=== PATIENT | female | born 1975 | race Caucasian/White ===

== ENCOUNTER 2016-11-09 18:14 | Emergency (ER) | payer MEDICAID ==
[~2016-11-09] VITALS: Ht 154.9 cm; Wt 60.0 kg
[~2016-11-09 18:14] MED LIST: CEPH500C3 PO
[2016-11-09 18:17] VITALS: BP 139/88; PULSE 97; RESP 16; TEMP 98.1; O2SAT 97
--- NOTE | 2016-11-09 19:14 | PD ---
HPI Chief Complaint: Musculoskeletal Complaint Time Seen by Provider: 19:04 Travel History International Travel<30 days: No Contact w/Intl Traveler<30days: No Traveled to known affect area: No History of Present Illness HPI This is a 41-year-old female smoker who reports a history of "borderline diabetes" who presents for evaluation of right leg pain. Symptoms started spontaneously 2 hours prior to examination well walking around her house. She describes it as a sharp pain and points to the location of her distal right quadriceps and right calf as the location of primary pain. Pain is worse when walking but also present when she is lying down. She denies any injuries. She denies any back pain, abdominal pain. She has never had this type of pain before. No history of DVT, PE, PVD. Denies recent travel, recent surgery. She does note that she has not had a menstrual period in several years. She tried using Advil prior to arrival but symptoms persist. She has no other complaints. PFSH Past Medical History Asthma: Yes Cardiovascular Problems: Yes Diminished Hearing: No Hypertension: Yes Respiratory: Yes ?: Not LMP: UNKNOWN : 5 Para: 4 Past Surgical History Section: Yes Cholecystectomy: Yes Hysterectomy: No Social History Alcohol Use: No Tobacco Use: Yes (11/05 PPD) Substance Use: No Allergies-Medications (Allergen,Severity, Reaction): Coded Allergies: Aspirin (Verified Allergy, Severe, SWELLS UP, 11/09/16) doesnt know Reported Meds & Prescriptions Reported Meds & Active Scripts Active Baclofen 10 Mg Tab 10 Mg PO Q8HR PRN 10 Days Ibuprofen 800 Mg Tab 800 Mg PO Q6HR PRN Review of Systems Except as stated in HPI: all other systems reviewed are Neg Physical Exam Narrative GENERAL: This is a well-developed well-nourished female who is in no acute distress. Resting comfortably in the hospital bed. Vital signs reviewed. SKIN: Warm and dry. No areas of erythema, ecchymosis. CARDIOVASCULAR: Regular rate and rhythm. No murmur appreciated. RESPIRATORY: No accessory muscle use. Clear to auscultation. Breath sounds equal bilaterally. GASTROINTESTINAL: Abdomen soft, non-tender, nondistended. Hepatic and splenic margins not palpable. MUSCULOSKELETAL: No obvious deformities. There is no lower extremity edema. The patient maintains tenderness to palpation to the right calf and right quadriceps musculature. There is no bruising, soft tissue swelling. There is no joint effusion. The patient maintains full range of motion of the lower extremities however she maintains that there is pain with range of motion activities utilizing the right leg. 2+ dorsalis pedis and posterior tibial pulses. Achilles tendon is intact. NEUROLOGICAL: Awake and alert. No obvious cranial nerve deficits. Motor grossly within normal limits. Normal speech. Data Data Last Documented VS Vital Signs Date Time Temp Pulse Resp B/P Pulse Ox O2 Delivery O2 Flow Rate FiO2 11/09/16 18:17 98.1 97 16 139/88 97 Orders Us Leg Venous Doppler (11/09/16 19:11) Ed Urine Pregnancytest Poc (11/09/16 19:11) [facility] Medical Decision Making Medical Screen Exam Complete: Yes Emergency Medical Condition: Yes Medical Record Reviewed: Yes Interpretation(s) Right leg ultrasound negative Differential Diagnosis Muscle cramp, muscle spasm, muscle strain, DVT, peripheral vascular disease, intermittent claudication, radiculopathy, rhabdomyolysis, compartment syndrome, myositis Narrative Course This is a 41-year-old female who developed pain in her right quadriceps and calf muscles 2 hours prior to examination well walking around her house. There was no trauma. Physical examination is reassuring with no evidence of peripheral vascular disease, bony involvement, joint involvement, no lower extremity edema. Given the spontaneous nature of her symptoms, Doppler ultrasound has been ordered to rule out DVT. I do suspect that this is most likely cramping or spasming of her muscles. The plan will be to treat the patient with NSAIDs and have her follow-up with her primary care physician. Diagnosis Primary Impression: Right leg pain Additional Instructions: Medication as needed. Take ibuprofen with meals. Do not drive or drink alcohol when taking baclofen. Follow up with primary care physician next week. Return for any emergent medical conditions. Med/Other Pt SpecificInfo: Prescription(s) given Scripts Baclofen 10 Mg Tab10 Mg PO Q8HR PRN (MUSCLE SPASM) 10 Days Ref 0 Prov:Raffi Suresh MD 11/09/16 Ibuprofen 800 Mg Qxs422 Mg PO Q6HR PRN (PAIN) #40 TAB Ref 0 Prov:Raffi Suresh MD 11/09/16 Disposition: 01 DISCHARGE HOME Condition: Stable Wayne Cotto Nov 09, 2016 19:14
[2016-11-09] MEDS ORDERED: IBUP800T23 PO (19:47)
[2016-11-09] MEDS ORDERED: BACL10TA PO (19:47)
--- NOTE | 2016-11-09 20:07 | RADRPT ---
EXAM DATE/TIME: 11/09/2016 19:16 [facility] COMPARISON: No previous studies available for comparison. INDICATIONS : Right leg pain. MEDICAL HISTORY : Hypertension. . Asthma. SURGICAL HISTORY : Cholecystectomy. section. Right ankle surgery. ENCOUNTER: Initial ACUITY: 1 day PAIN SCORE: 7/10 LOCATION: Right leg. TECHNIQUE: Venous ultrasound of the leg was performed from the inguinal ligament to the proximal calf. Real-brian e, color Doppler and spectral tracing, compression and augmentation techniques were used. FINDINGS: There is normal compressibility of the deep venous system from the inguinal region to the proximal ca lf. No echogenic clot is seen in the lumen of the common femoral, femoral, popliteal, and posterior tibial veins. There is a normal response of the venous system to proximal and distal augmentation an d respiration. CONCLUSION: Normal examination. Julio Fraser MD on November 09, 2016 at 20:03 Board Certified Radiologist. This report was verified electronically.
== END 2016-11-09 20:21 | disposition home or self-care (01) ==
LOC: NEPB 18:14
DX: M79.604 Pain in right leg (principal); I10 Essential (primary) hypertension; F17.210 Nicotine dependence, cigarettes, uncomplicated
CPT/HCPCS: 84703; 93971

== ENCOUNTER 2017-05-07 12:41 | Emergency (ER) | payer MEDICAID ==
[~2017-05-07] VITALS: Ht 167.6 cm; Wt 60.0 kg
[~2017-05-07 12:41] MED LIST changes: +BACL10TA PO; -CEPH500C3 PO; +IBUP800T23 PO
[2017-05-07 12:53] VITALS: BP 133/89; PULSE 80; RESP 18; TEMP 99; O2SAT 99
[2017-05-07] MEDS ORDERED: SODIUM CHLOR 0.9% 1000 ML INJ 1,000 ML IV ONE (12:53)
[2017-05-07] MEDS ORDERED: SODIUM CHLOR 0.9% 1000 ML INJ 1,000 ML IV SCH (12:53)
[2017-05-07 12:57] VITALS: BP 133/89; PULSE 80; RESP 18; TEMP 99; O2SAT 99
--- NOTE | 2017-05-07 12:57 | PD ---
HPI Chief Complaint: syncope Time Seen by Provider: 12:48 Travel History International Travel<30 days: No Contact w/Intl Traveler<30days: No Traveled to known affect area: No History of Present Illness HPI This is a 41-year-old female who presents via EMS for evaluation of questionable syncopal event. The patient reports that she is homeless, currently living in her car. This morning she spent several hours in her car and the before meals was not working. She did have a portable fan that was going on her but she was reportedly sweating quite a bit and she started feeling generally weak. She entered the [facility] [place] luncheon when she sat down she reports that she "blacked out" the next thing that she remembers someone trying to wake her up. She never fell out of her chair during this event and there was no reported seizure activity, no incontinence. She is currently complaining of generalized weakness, headache and nausea. She received 500 mL bolus of IV fluids via EMS. She reports that she hasn't had much to drink today, she drank about one bottle of warm water. She denies any chest pain, shortness of breath, abdominal pain, recent illness, fevers or chills. She has no other complaints at this time. [facility] Past Medical History Asthma: Yes Cardiovascular Problems: Yes Diminished Hearing: No Hypertension: Yes Respiratory: Yes : 5 Para: 4 Past Surgical History Section: Yes Cholecystectomy: Yes Hysterectomy: No Social History Alcohol Use: No Tobacco Use: Yes (11/05 PPD) Substance Use: No Allergies-Medications (Allergen,Severity, Reaction): Coded Allergies: Aspirin (Verified Allergy, Severe, SWELLS UP, 11/09/16) doesnt know Reported Meds & Prescriptions Reported Meds & Active Scripts Active Zofran Odt (Ondansetron Odt) 4 Mg Tab 4 Mg SL Q6HR PRN Baclofen 10 Mg Tab 10 Mg PO Q8HR PRN 10 Days Ibuprofen 800 Mg Tab 800 Mg PO Q6HR PRN Review of Systems Except as stated in HPI: all other systems reviewed are Neg Physical Exam Narrative GENERAL: Well-developed well-nourished female in no acute distress. Vital signs reviewed. SKIN: Warm and dry. HEAD: Atraumatic. Normocephalic. EYES: Pupils equal and round. No scleral icterus. No injection or drainage. ENT: No nasal bleeding or discharge. Mucous membranes pink and moist. NECK: Trachea midline. No JVD. CARDIOVASCULAR: Regular rate and rhythm. No murmur appreciated. RESPIRATORY: No accessory muscle use. Clear to auscultation. Breath sounds equal bilaterally. GASTROINTESTINAL: Abdomen soft, non-tender, nondistended. Hepatic and splenic margins not palpable. MUSCULOSKELETAL: No obvious deformities. No edema. NEUROLOGICAL: Awake and alert. No obvious cranial nerve deficits. Motor grossly within normal limits. Normal speech. PSYCHIATRIC: Appropriate mood and affect; insight and judgment normal. Data Data Last Documented VS Vital Signs Date Time Temp Pulse Resp B/P Pulse Ox O2 Delivery O2 Flow Rate FiO2 05/07/17 12:57 99.0 80 18 133/89 99 Room Air Orders Electrocardiogram (05/07/17 12:53) Ed Urine Pregnancytest Poc (05/07/17 12:53) Complete Blood Count With Diff (05/07/17 12:53) Comprehensive Metabolic Panel (05/07/17 12:53) Magnesium (Mg) (05/07/17 12:53) Ckmb (Isoenzyme) Profile (05/07/17 12:53) Iv Access Insert/Monitor (05/07/17 12:53) Ondansetron Inj (Zofran Inj) (05/07/17 13:00) Sodium Chlor 0.9% 1000 Ml Inj (Ns 1000 M (05/07/17 12:53) Sodium Chlor 0.9% 1000 Ml Inj (Ns 1000 M (05/07/17 12:53) Ecg Monitoring (05/07/17 12:53) Potassium Chloride (Kcl) (05/07/17 13:45) Ct Brain W/O Iv Contrast(Rout) (05/07/17 ) Metoclopramide Inj (Reglan Inj) (05/07/17 13:45) Albuterol-Ipratropium Neb (Duoneb Neb) (05/07/17 13:45) Labs Laboratory Tests Test 05/07/17 13:00 White Blood Count 6.1 TH/MM3 Red Blood Count 4.07 MIL/MM3 Hemoglobin 12.7 GM/DL Hematocrit 35.9 % Mean Corpuscular Volume 88.3 FL Mean Corpuscular Hemoglobin 31.3 PG Mean Corpuscular Hemoglobin 35.5 % Concent Red Cell Distribution Width 13.1 % Platelet Count 215 TH/MM3 Mean Platelet Volume 7.8 FL Neutrophils (%) (Auto) 76.8 % Lymphocytes (%) (Auto) 17.0 % Monocytes (%) (Auto) 4.2 % Eosinophils (%) (Auto) 1.1 % Basophils (%) (Auto) 0.9 % Neutrophils # (Auto) 4.7 TH/MM3 Lymphocytes # (Auto) 1.0 TH/MM3 Monocytes # (Auto) 0.3 TH/MM3 Eosinophils # (Auto) 0.1 TH/MM3 Basophils # (Auto) 0.1 TH/MM3 CBC Comment DIFF FINAL Differential Comment Sodium Level 143 MEQ/L Potassium Level 3.3 MEQ/L Chloride Level 112 MEQ/L Carbon Dioxide Level 25.8 MEQ/L Anion Gap 5 MEQ/L Blood Urea Nitrogen 4 MG/DL Creatinine 0.80 MG/DL Estimat Glomerular Filtration 79 ML/MIN Rate Random Glucose 98 MG/DL Calcium Level 8.0 MG/DL Magnesium Level 2.0 MG/DL Total Bilirubin 0.4 MG/DL Aspartate Amino Transf 8 U/L (AST/SGOT) Alanine Aminotransferase 14 U/L (ALT/SGPT) Alkaline Phosphatase 70 U/L Total Creatine Kinase 69 U/L Total Protein 6.4 GM/DL Albumin 3.3 GM/DL [facility] Medical Decision Making Medical Screen Exam Complete: Yes Emergency Medical Condition: Yes Medical Record Reviewed: Yes Interpretation(s) EKG sinus rhythm, rate 76 CONCLUSION: 1. No acute intracranial abnormalities. 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 Differential Diagnosis Dehydration, orthostatic hypotension, electrolyte abnormality, subarachnoid hemorrhage, rhabdomyolysis Narrative Course 41-year-old female presents after having a personal single event while sitting in a chair. This was after spending several hours and her hot truck, her fan was not working and she only had a portable fat to cool her off. Plan is for basic lab work, 12-lead EKG, and ECG monitoring pulse oximetry. She will be given IV Zofran, 2 L of IV fluids. The patient's laboratory has been reviewed. Potassium is mildly low at 3.3, this will be replenished via oral route. Calcium is 8.0. Upon reexamination patient continues to have some nausea as well as a headache and therefore CT of the brain has been ordered. She was also having some wheezing for which she was given DuoNeb therapy. Upon reexamination she is feeling improved. Her imaging studies reveal no acute abnormalities. She is stable for discharge. Diagnosis Primary Impression: Dehydration Additional Impressions: Hypokalemia Syncope Qualified Code: R55 - Syncope, unspecified syncope type Additional Instructions: Medication as needed for nausea. Stay well hydrated and well-nourished. Follow -up with primary care physician. Return for any emergent medical conditions. Med/Other Pt SpecificInfo: Prescription(s) given Scripts Ondansetron Odt (Zofran Odt)4 Mg Tab4 Mg SL Q6HR PRN (Nausea/Vomiting) #15 TAB Ref 0 Prov:Michael Johnson MD 05/07/17 Disposition: 01 DISCHARGE HOME Condition: Stable Wayne Cotto May 07, 2017 12:57
[2017-05-07] MEDS ORDERED: ONDANSETRON HCL 4 MG/2 ML VIAL IVP ONE (13:00)
[2017-05-07 13:12] LABS: AUTOMATED NEUTROPHIL # 4.7 TH/MM3 (1.8-7.7); BASOPHIL # 0.1 TH/MM3 (0-0.2); BASOPHIL % 0.9 % (0.0-2.0); EOSINOPHIL # 0.1 TH/MM3 (0-0.4); EOSINOPHIL % 1.1 % (0.0-4.0); HEMATOCRIT 35.9 % (35.0-46.0); HEMO FLAGS DIFF FINAL; MEAN CELL VOLUME 88.3 FL (80.0-100.0); MEAN CORPUSCULAR HEMOGLOBIN 31.3 PG (27.0-34.0); MEAN CORPUSCULAR HGB CONC 35.5 % (32.0-36.0); MONO % 4.2 % (0.0-8.0); NEUT % 76.8 % (16.0-70.0); PLATELET COUNT 215 TH/MM3 (150-450); RED BLOOD COUNT 4.07 MIL/MM3 (4.00-5.30); RED CELL DISTRIBUTION WIDTH 13.1 % (11.6-17.2); WHITE BLOOD COUNT 6.1 TH/MM3 (4.0-11.0)
[2017-05-07 13:29] LABS: ALT (GPT) 14 U/L (10-53); ANION GAP 5 MEQ/L (5-15); AST (GOT) 8 U/L (15-37); BICARBONATE 25.8 MEQ/L (21.0-32.0); BLOOD UREA NITROGEN 4 MG/DL (7-18); CHLORIDE 112 MEQ/L (98-107); GLOMERULAR FILTRATION RATE 79 ML/MIN (>89); POTASSIUM 3.3 MEQ/L (3.5-5.1); SODIUM (NA) 143 MEQ/L (136-145)
[2017-05-07 13:31] LABS: ALKALINE PHOSPHATASE 70 U/L (45-117); TOTAL BILIRUBIN ADULT 0.4 MG/DL (0.2-1.0)
[2017-05-07 13:32] LABS: CREATINE KINASE 69 U/L (26-192)
[2017-05-07] MEDS ORDERED: METOCLOPRAMIDE HCL 10 MG/2 ML VIAL IV PUSH ONE (13:45)
[2017-05-07] MEDS ORDERED: POTASSIUM CHLORIDE 20 MEQ CONTROLLED RELEASE TAB PO ONE (13:45)
[2017-05-07] MEDS ORDERED: RESP: ALBUTEROL 2.5 MG/IPRATROPIUM 0.5 MG NEB (SCH) INH ONE (13:45)
--- NOTE | 2017-05-07 14:27 | RADRPT ---
EXAM DATE/TIME: 05/07/2017 13:59 [facility] COMPARISON: CT BRAIN W/O CONTRAST, July 14, 2016, 22:11. INDICATIONS : Patient passed out, has headache. RADIATION DOSE: 31.70 CTDIvol (mGy) MEDICAL HISTORY : Cardiovascular disease. Hypertension. SURGICAL HISTORY : Cholecystectomy. ENCOUNTER: Initial ACUITY: 1 day PAIN SCALE: 5/10 LOCATION: cranial TECHNIQUE: Multiple contiguous axial images were obtained of the head. Using automated exposure control and adj ustment of the mA and/or kV according to patient size, radiation dose was kept as low as reasonably a chievable to obtain optimal diagnostic quality images. DICOM format image data is available electro nically for review and comparison. FINDINGS: CEREBRUM: The ventricles are normal for age. No evidence of midline shift, mass lesion, hemorrhage or acute in farction. No extra-axial fluid collections are seen. POSTERIOR FOSSA: The cerebellum and brainstem are intact. The 4th ventricle is midline. The cerebellopontine angle i s unremarkable. EXTRACRANIAL: The visualized portion of the orbits is intact. SKULL: The calvaria is intact. No evidence of skull fracture. CONCLUSION: 1. No acute intracranial abnormalities. 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 Julio Fraser MD on May 07, 2017 at 14:23 Board Certified Radiologist. This report was verified electronically.
[2017-05-07] MEDS ORDERED: ZOFR4TAB3 SL (14:40)
[2017-05-07 14:59] VITALS: BP 131/84; PULSE 87; RESP 18; TEMP 98.5; O2SAT 99
--- NOTE | 2017-05-08 10:04 | EKG ---
Date Performed: 05/07/2017 Time Performed: 13:04:14 PTAGE: 41 years EKG: Sinus rhythm NORMAL ECG PREVIOUS TRACING : 07/14/2016 21.31 DOCTOR: Radhames Andres Interpretating Date/Time 05/08/2017 10:02:28
== END 2017-05-07 15:10 | disposition home or self-care (01) ==
LOC: NEPC 12:41
DX: E86.0 Dehydration (principal); E87.6 Hypokalemia; I10 Essential (primary) hypertension; F17.210 Nicotine dependence, cigarettes, uncomplicated; Z59.0 Homelessness
CPT/HCPCS: 70450; 80053; 82550; 83735; 84703; 85025; 93005; 94664; 96361; 96374; 96375; 99285; J2405; J2765; J7030

== ENCOUNTER 2017-12-10 20:17 | Emergency (ER) | payer MEDICAID ==
[~2017-12-10 20:17] MED LIST changes: +IBUP1TAB7 PO; -IBUP800T23 PO; +ZOFR4TAB3 SL
[2017-12-10 20:18] VITALS: BP 143/97; PULSE 106; RESP 16; TEMP 97.8; O2SAT 95
[2017-12-10 23:28] VITALS: BP 133/94; PULSE 81; RESP 18; O2SAT 97
[2017-12-10] MEDS ORDERED: PRED50 PO (23:45)
[2017-12-10] MEDS ORDERED: VENTAER INH (23:45)
[2017-12-10] MEDS ORDERED: AZIT250T3 PO (23:45)
--- NOTE | 2017-12-10 23:45 | PD ---
HPI Chief Complaint: Cold / Flu Symptoms Time Seen by Provider: 23:15 Travel History International Travel<30 days: No Contact w/Intl Traveler<30days: No Traveled to known affect area: No History of Present Illness HPI Patient is a 42-year-old female presenting to emergency room for evaluation of cough and sneezing. Patient states this started 2-3 days ago, she states that her friends and her boyfriend wanted her to get checked out to see if she is contagious. Patient denies any headache, body aches, fever, chills, nausea, vomiting, abdominal pain. She does report a remote history of asthma as well as current tobacco use since age 17. Symptoms are exacerbated with cold weather. Patient has been taking Mucinex and [id number]-[id number] cough medicine which seems to be helping symptoms. PFSH Past Medical History Asthma: Yes Cardiovascular Problems: Yes Hypertension: Yes Respiratory: Yes ?: Unknown : 4 Para: 4 Past Surgical History Section: Yes Cholecystectomy: Yes Hysterectomy: No Social History Alcohol Use: No Tobacco Use: Yes (1 PPD) Substance Use: No Allergies-Medications (Allergen,Severity, Reaction): Coded Allergies: aspirin (Unverified Allergy, Severe, SWELLS UP, 12/10/17) doesnt know Reported Meds & Prescriptions Reported Meds & Active Scripts Active Zofran Odt (Ondansetron Odt) 4 Mg Tab 4 Mg SL Q6HR PRN Baclofen 10 Mg Tab 10 Mg PO Q8HR PRN 10 Days Ibuprofen 800 Mg Tab 800 Mg PO Q6HR PRN Review of Systems Except as stated in HPI: all other systems reviewed are Neg General / Constitutional: No: Fever, Chills HENT: Positive: Rhinitis, Congestion, No: Headaches, Sore Throat Cardiovascular: No: Chest Pain or Discomfort Respiratory: Positive: Cough, No: Shortness of Breath Physical Exam Narrative GENERAL: Well-developed, well-nourished, alert female. Presenting in no acute distress. SKIN: Warm and dry. HEAD: Atraumatic. Normocephalic. EYES: Pupils equal and round. No scleral icterus. No injection or drainage. ENT: No nasal bleeding or discharge. Mucous membranes pink and moist. NECK: Trachea midline. No JVD. CARDIOVASCULAR: Regular rate and rhythm. RESPIRATORY: No accessory muscle use. Clear to auscultation. Breath sounds equal bilaterally. Scattered expiratory wheezes in bases, improved after cough. GASTROINTESTINAL: Abdomen soft, non-tender, nondistended. Hepatic and splenic margins not palpable. MUSCULOSKELETAL: Extremities without clubbing, cyanosis, or edema. No obvious deformities. NEUROLOGICAL: Awake and alert. No obvious cranial nerve deficits. Motor grossly within normal limits. Five out of 5 muscle strength in the arms and legs. Normal speech. PSYCHIATRIC: Appropriate mood and affect; insight and judgment normal. Data Data Last Documented VS Vital Signs Date Time Temp Pulse Resp B/P (MAP) Pulse Ox O2 Delivery O2 Flow Rate FiO2 12/10/17 23:28 81 18 133/94 (107) 97 Room Air 12/10/17 20:18 97.8 Orders Orders Influenzae A/B Antigen (12/10/17 20:41) [facility] Medical Decision Making Medical Screen Exam Complete: Yes Emergency Medical Condition: Yes Interpretation(s) Vital Signs Date Time Temp Pulse Resp B/P (MAP) Pulse Ox O2 Delivery O2 Flow Rate FiO2 12/10/17 23:28 81 18 133/94 (107) 97 Room Air 12/10/17 20:18 97.8 106 16 143/97 (112) 95 Room Air Differential Diagnosis Asthma exacerbation versus bronchitis versus pneumonia versus influenza versus other Narrative Course Patient is a well-appearing 42-year-old female with a long history of tobacco use presenting for evaluation of cough and sneezing. Physical exam revealed scattered fine expiratory wheezes, patient's vital signs are stable. Symptoms appear to be more consistent with viral URI. Patient will be discharged home with a prescription for a albuterol inhaler. She was given a prescription for a backup antibiotic and steroids should her symptoms worsen. Patient declined nebulizer treatment or any further workup in the emergency department. She was strongly encouraged to return if she needed to any new or worsening symptoms. Diagnosis Primary Impression: URI (upper respiratory infection) Qualified Codes: J06.9 - Acute upper respiratory infection, unspecified Referrals: [facility] Patient Instructions: General Instructions, Upper Respiratory Infection (ED) Additional Instructions: Follow-up at the at the [facility] clinic Use medications as directed Return to emergency department for any new or worsening symptoms Med/Other Pt SpecificInfo: Prescription(s) given Scripts Azithromycin (Azithromycin) 250 Mg Tab 250 MG PO DIRECTED for Infection, #6 TAB 0 Refills Take 2 tabs (500 mg) on day 1 then 1 tab daily x 4 days. Prov: Damaris Hernandez 12/10/17 Prednisone (Prednisone) 50 Mg Tab 50 MG PO DAILY for 5 Days, #5 TAB 0 Refills Prov: Damaris Hernandez 12/10/17 Albuterol 18 GM Inh (Ventolin Hfa 18 GM Inh) 90 Mcg/Act Aer 2 PUFF INH Q4-6H Y for SHORTNESS OF BREATH, #1 INHALER 0 Refills Prov: Damaris Hernandez 12/10/17 Disposition: 01 DISCHARGE HOME Condition: Stable Damaris Hernandez Dec 10, 2017 23:45
== END 2017-12-11 | disposition home or self-care (01) ==
LOC: NEPD 20:17
DX: J06.9 Acute upper respiratory infection, unspecified (principal); F17.200 Nicotine dependence, unspecified, uncomplicated
CPT/HCPCS: 99283

== ENCOUNTER 2018-02-01 08:51 | Emergency (ER) | payer MEDICAID ==
[~2018-02-01] VITALS: Ht 154.9 cm; Wt 60.0 kg
[~2018-02-01 08:51] MED LIST changes: +AZIT250T3 PO; +PRED50 PO; +VENTAER INH
[2018-02-01 08:57] VITALS: BP 142/84; PULSE 81; RESP 16; TEMP 98; O2SAT 100
--- NOTE | 2018-02-01 09:11 | PD ---
HPI Chief Complaint: Dizziness Time Seen by Provider: 09:06 Travel History International Travel<30 days: No Contact w/Intl Traveler<30days: No Traveled to known affect area: No History of Present Illness HPI Patient comes in complaining of acute onset of dizziness, room spinning sensation onset since about 6 AM this morning. This has not resolved, has caused her to vomit 3 times, and that caused her to come in. Patient still feels like the room is spinning around her. Patient denies any alleviating factors, aggravated by eye movement or head movement. Allergic to aspirin Past medical history significant for hypertension, cholecystectomy, asthma with a history of 1 pack per day smoker [facility] Past Medical History Asthma: Yes Cardiovascular Problems: Yes Hypertension: Yes Respiratory: Yes : 4 Para: 4 Past Surgical History Section: Yes Cholecystectomy: Yes Hysterectomy: No Social History Alcohol Use: No Tobacco Use: Yes (1 PPD) Substance Use: No Allergies-Medications (Allergen,Severity, Reaction): Coded Allergies: aspirin (Unverified Allergy, Severe, SWELLS UP, 02/01/18) doesnt know promethazine (Verified Adverse Reaction, Intermediate, Nausea/Vomiting, ) Reported Meds & Prescriptions Reported Meds & Active Scripts Active No Active Prescriptions or Reported Medications Review of Systems Except as stated in HPI: all other systems reviewed are Neg General / Constitutional: No: Fever Eyes: No: Visual changes HENT: Positive: Vertigo Cardiovascular: No: Chest Pain or Discomfort Respiratory: No: Shortness of Breath Gastrointestinal: Positive: Nausea, No: Abdominal Pain Genitourinary: No: Dysuria Musculoskeletal: No: Pain Skin: No Rash Neurologic: No: Weakness Psychiatric: No: Depression Endocrine: No: Polydipsia Hematologic/Lymphatic: No: Easy Bruising Physical Exam Narrative GENERAL: SKIN: Warm and dry. HEAD: Atraumatic. Normocephalic. EYES: Pupils equal and round. No scleral icterus. No injection or drainage. Lateral nystagmus noted, no vertical or rotary component, nystagmus is fatigable. ENT: No nasal bleeding or discharge. Mucous membranes pink and moist. Bilateral TM effusions noted without otitis media or otitis externa findings. NECK: Trachea midline. No JVD. CARDIOVASCULAR: Regular rate and rhythm. RESPIRATORY: No accessory muscle use. Clear to auscultation. Breath sounds equal bilaterally. GASTROINTESTINAL: Abdomen soft, non-tender, nondistended MUSCULOSKELETAL: Extremities without clubbing, cyanosis, or edema. No obvious deformities. NEUROLOGICAL: Awake and alert. No obvious cranial nerve deficits. Motor grossly within normal limits. Five out of 5 muscle strength in the arms and legs. Normal speech. PSYCHIATRIC: Appropriate mood and affect; insight and judgment normal. Data Data Last Documented VS Vital Signs Date Time Temp Pulse Resp B/P (MAP) Pulse Ox O2 Delivery O2 Flow Rate FiO2 02/01/18 08:57 98.0 81 16 142/84 (103) 100 Orders Orders Complete Blood Count With Diff (02/01/18 09:11) Basic Metabolic Panel (Bmp) (02/01/18 09:11) Troponin I (02/01/18 09:11) Urinalysis - C+S If Indicated (02/01/18 09:11) Ct Brain W/O Iv Contrast(Rout) (02/01/18 09:11) Iv Access Insert/Monitor (02/01/18 09:11) Ecg Monitoring (02/01/18 09:11) Oximetry (02/01/18 09:11) Ed Urine Pregnancytest Poc (02/01/18 09:11) Drug Screen, Random Urine (02/01/18 09:11) Alcohol (Ethanol) (02/01/18 09:11) Salicylates (Aspirin) (02/01/18 09:11) Tylenol (Acetaminophen) (02/01/18 09:11) Meclizine (Antivert) (02/01/18 09:15) Promethazine Inj (Phenergan Inj) (02/01/18 09:15) Labs Laboratory Tests Test 02/01/18 09:45 White Blood Count 5.2 TH/MM3 Red Blood Count 4.53 MIL/MM3 Hemoglobin 13.8 GM/DL Hematocrit 39.3 % Mean Corpuscular Volume 86.7 FL Mean Corpuscular Hemoglobin 30.4 PG Mean Corpuscular Hemoglobin Concent 35.1 % Red Cell Distribution Width 13.5 % Platelet Count 213 TH/MM3 Mean Platelet Volume 7.7 FL Neutrophils (%) (Auto) 69.3 % Lymphocytes (%) (Auto) 18.6 % Monocytes (%) (Auto) 8.4 % Eosinophils (%) (Auto) 2.9 % Basophils (%) (Auto) 0.8 % Neutrophils # (Auto) 3.6 TH/MM3 Lymphocytes # (Auto) 1.0 TH/MM3 Monocytes # (Auto) 0.4 TH/MM3 Eosinophils # (Auto) 0.1 TH/MM3 Basophils # (Auto) 0.0 TH/MM3 CBC Comment DIFF FINAL Differential Comment Blood Urea Nitrogen 7 MG/DL Creatinine 0.88 MG/DL Random Glucose 91 MG/DL Calcium Level 8.1 MG/DL Sodium Level 142 MEQ/L Potassium Level 3.7 MEQ/L Chloride Level 108 MEQ/L Carbon Dioxide Level 29.2 MEQ/L Anion Gap 5 MEQ/L Estimat Glomerular Filtration Rate 71 ML/MIN Troponin I LESS THAN 0.02 NG/ML Salicylates Level 2.3 MG/DL Acetaminophen Level LESS THAN 2.0 MCG/ML Ethyl Alcohol Level LESS THAN 3 MG/DL MDM Medical Decision Making Medical Screen Exam Complete: Yes Emergency Medical Condition: Yes Medical Record Reviewed: Yes Differential Diagnosis Peripheral vertigo versus central vertigo versus intracranial hemorrhage Narrative Course CT brain was read by radiologist as stable appearance with no evidence of hemorrhage mass or stroke Negative alcohol level 10, level or salicylate level. CBC is less does not show any anemia, leukocytosis, normal platelet count and no left shift Chemistry shows normal electrolytes, normal kidney functions, negative cardiac exam Diagnosis Primary Impression: Vertigo Patient Instructions: General Instructions, Vertigo (ED) Scripts Meclizine (Meclizine) 25 Mg Tab 25 MG PO TID Y for VERTIGO, #21 TAB 0 Refills Prov: Michael Johnson MD 02/01/18 Disposition: 01 DISCHARGE HOME Condition: Stable Michael Johnson MD Feb 01, 2018 09:11
[2018-02-01] MEDS ORDERED: PROMETHAZINE INJ 25 MG/ML VIAL IM ONE (09:15)
[2018-02-01] MEDS ORDERED: MECLIZINE HCL 25 MG TAB PO ONE (09:15)
--- NOTE | 2018-02-01 09:46 | RADRPT ---
EXAM DATE/TIME: 02/01/2018 09:27 [facility] COMPARISON: CT BRAIN W/O CONTRAST, May 07, 2017, 13:59. INDICATIONS : Dizziness with nausea and vomiting today. RADIATION DOSE: 56.35 CTDIvol (mGy) MEDICAL HISTORY : Hypertension. SURGICAL HISTORY : Cholecystectomy. ENCOUNTER: Initial ACUITY: 1 day PAIN SCALE: 4/10 LOCATION: Bilateral head TECHNIQUE: Multiple contiguous axial images were obtained of the head. Using automated exposure control and adj ustment of the mA and/or kV according to patient size, radiation dose was kept as low as reasonably a chievable to obtain optimal diagnostic quality images. DICOM format image data is available electro nically for review and comparison. FINDINGS: CEREBRUM: The ventricles are normal for age. No evidence of midline shift, mass lesion, hemorrhage or acute in farction. There is a stable small left choroidal fissure cyst. No extra-axial fluid collections are s een. POSTERIOR FOSSA: The cerebellum and brainstem are intact. The 4th ventricle is midline. The cerebellopontine angle i s unremarkable. EXTRACRANIAL: The visualized portion of the orbits is intact. SKULL: The calvaria is intact. No evidence of skull fracture. CONCLUSION: Stable appearance with no evidence of hemorrhage, mass or stroke. Chente Mcdaniel MD on February 01, 2018 at 9:40 Board Certified Radiologist. This report was verified electronically.
[2018-02-01 10:10] LABS: AUTOMATED NEUTROPHIL # 3.6 TH/MM3 (1.8-7.7); BASOPHIL % 0.8 % (0.0-2.0); EOSINOPHIL # 0.1 TH/MM3 (0-0.4); EOSINOPHIL % 2.9 % (0.0-4.0); HEMATOCRIT 39.3 % (35.0-46.0); HEMOGLOBIN 13.8 GM/DL (11.6-15.3); LYMPH % 18.6 % (9.0-44.0); MEAN CELL VOLUME 86.7 FL (80.0-100.0); MEAN CORPUSCULAR HEMOGLOBIN 30.4 PG (27.0-34.0); MEAN CORPUSCULAR HGB CONC 35.1 % (32.0-36.0); MEAN PLATELET VOLUME 7.7 FL (7.0-11.0); MONO % 8.4 % (0.0-8.0); MONOCYTE # 0.4 TH/MM3 (0-0.9); NEUT % 69.3 % (16.0-70.0); PLATELET COUNT 213 TH/MM3 (150-450); RED BLOOD COUNT 4.53 MIL/MM3 (4.00-5.30); RED CELL DISTRIBUTION WIDTH 13.5 % (11.6-17.2); WHITE BLOOD COUNT 5.2 TH/MM3 (4.0-11.0)
[2018-02-01 10:33] LABS: BICARBONATE 29.2 MEQ/L (21.0-32.0); BLOOD UREA NITROGEN 7 MG/DL (7-18); CALCIUM 8.1 MG/DL (8.5-10.1); CHLORIDE 108 MEQ/L (98-107); CREATININE 0.88 MG/DL (0.50-1.00); GLOMERULAR FILTRATION RATE 71 ML/MIN (>89); GLUCOSE,RANDOM 91 MG/DL (74-106); SODIUM (NA) 142 MEQ/L (136-145)
[2018-02-01 10:38] LABS: ACETAMINOPHEN LESS THAN 2.0 MCG/ML (10.0-30.0); TROPONIN I LESS THAN 0.02 NG/ML (0.02-0.05)
[2018-02-01] MEDS ORDERED: MECL-62 PO (11:30)
[2018-02-01 12:29] LABS: AMORPHOUS SEDIMENT, URINE FEW; BACTERIA, URINE FEW /hpf; BILIRUBIN, URINE NEG (NEG); BLOOD, URINE NEG (NEG); GLUCOSE,URINE NEG (NEG); KETONE, URINE NEG (NEG); MUCUS URINE FEW /lpf (OCC); NITRITE,URINE NEG (NEG); SQUAMOUS EPITHELIAL CELL URINE 6 /hpf (0-5); URINE COLOR YELLOW (YELLW/STRAW); URINE LEUKOCYTE ESTERASE SMALL (NEG)
== END 2018-02-01 12:39 | disposition home or self-care (01) ==
LOC: NEPE 08:51
DX: R42 Dizziness and giddiness (principal); R11.10 Vomiting, unspecified; I10 Essential (primary) hypertension; J45.909 Unspecified asthma, uncomplicated; F17.200 Nicotine dependence, unspecified, uncomplicated
CPT/HCPCS: 70450; 80048; 80307; 81001; 84484; 84703; 85025; 87086

== ENCOUNTER 2018-03-07 13:02 | Emergency (ER) | payer MEDICAID ==
[~2018-03-07] VITALS: Ht 165.1 cm; Wt 62.0 kg
[~2018-03-07 13:02] MED LIST changes: -AZIT250T3 PO; -BACL10TA PO; -IBUP1TAB7 PO; +MECL-62 PO; -PRED50 PO; -VENTAER INH; -ZOFR4TAB3 SL
[2018-03-07 13:04] VITALS: BP 134/79; PULSE 74; RESP 18; O2SAT 96
[2018-03-07] MEDS ORDERED: SODIUM CHLOR 0.9% 1000 ML INJ 1,000 ML IV ONE (13:20)
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
[2018-03-07] MEDS ORDERED: SODIUM CHLORIDE 0.9% FLUSH 10 ML FLUSH IVF PRN (13:30)
[2018-03-07 13:44] LABS: AUTOMATED NEUTROPHIL # 3.1 TH/MM3 (1.8-7.7); BASOPHIL # 0.1 TH/MM3 (0-0.2); EOSINOPHIL # 0.2 TH/MM3 (0-0.4); EOSINOPHIL % 3.8 % (0.0-4.0); HEMATOCRIT 37.2 % (35.0-46.0); LYMPH % 25.7 % (9.0-44.0); LYMPHOCYTE # 1.2 TH/MM3 (1.0-4.8); MEAN CORPUSCULAR HEMOGLOBIN 31.1 PG (27.0-34.0); MEAN PLATELET VOLUME 7.7 FL (7.0-11.0); MONO % 6.5 % (0.0-8.0); MONOCYTE # 0.3 TH/MM3 (0-0.9); PLATELET COUNT 211 TH/MM3 (150-450); RED BLOOD COUNT 4.18 MIL/MM3 (4.00-5.30); RED CELL DISTRIBUTION WIDTH 13.8 % (11.6-17.2); WHITE BLOOD COUNT 4.8 TH/MM3 (4.0-11.0)
--- NOTE | 2018-03-07 13:50 | RADRPT ---
EXAM DATE/TIME: 03/07/2018 13:36 [facility] COMPARISON: No previous studies available for comparison. INDICATIONS : Complains of left anterior knee and ankle pain. MEDICAL HISTORY : None. SURGICAL HISTORY : None. ENCOUNTER: Initial ACUITY: 1 day PAIN SCORE: 10/10 LOCATION: Left anterior Tibia FINDINGS: Two view examination of the left tibia demonstrates no evidence of fracture or dislocation. Bony min eralization is normal. The soft tissue structures are intact. CONCLUSION: Negative for fracture or dislocation. Follow up in 7-10 days is suggested if symptoms persist.. Dedicated knee and ankle films may be of benefit if focal symptoms Mateus Vargas MD FACR on March 07, 2018 at 13:47 Board Certified Radiologist. This report was verified electronically.
[2018-03-07 14:00] LABS: BICARBONATE 23.6 MEQ/L (21.0-32.0); BLOOD UREA NITROGEN 6 MG/DL (7-18); CALCIUM 8.3 MG/DL (8.5-10.1); CHLORIDE 109 MEQ/L (98-107); CREATININE 0.87 MG/DL (0.50-1.00); GLOMERULAR FILTRATION RATE 72 ML/MIN (>89); GLUCOSE,RANDOM 120 MG/DL (74-106); SODIUM (NA) 141 MEQ/L (136-145)
[2018-03-07] MEDS ORDERED: POTASSIUM CHLORIDE 20 MEQ CONTROLLED RELEASE TAB PO ONE (14:30)
--- NOTE | 2018-03-07 15:19 | RADRPT ---
EXAM DATE/TIME: 03/07/2018 14:52 [facility] COMPARISON: CT BRAIN W/O CONTRAST, February 01, 2018, 9:27. INDICATIONS : Seizures. MEDICAL HISTORY : Seizures. Hypertension. Diabetes mellitus type 2. SURGICAL HISTORY : Cholecystectomy. ENCOUNTER: Initial ACUITY: 1 day PAIN SCALE: 0/10 LOCATION: cranial TECHNIQUE: Multiple contiguous axial images were obtained of the head. Using automated exposure control and adj ustment of the mA and/or kV according to patient size, radiation dose was kept as low as reasonably a chievable to obtain optimal diagnostic quality images. DICOM format image data is available electro nically for review and comparison. FINDINGS: CEREBRUM: The ventricles are normal for age. No evidence of midline shift, mass lesion, hemorrhage or acute in farction. No extra-axial fluid collections are seen. POSTERIOR FOSSA: The cerebellum and brainstem are intact. The 4th ventricle is midline. The cerebellopontine angle i s unremarkable. EXTRACRANIAL: The visualized portion of the orbits is intact. SKULL: The calvaria is intact. No evidence of skull fracture. CONCLUSION: Stable noncontrast axial head CT. Mateus Vargas MD FACR on March 07, 2018 at 15:16 Board Certified Radiologist. This report was verified electronically.
--- NOTE | 2018-03-07 15:45 | PD ---
Physical Exam Date Seen by Provider: March 07, 2018 Data Data Last Documented VS Vital Signs Date Time Temp Pulse Resp B/P (MAP) Pulse Ox O2 Delivery O2 Flow Rate FiO2 03/07/18 13:04 74 18 134/79 (97) 96 Orders Orders Complete Blood Count With Diff (03/07/18 13:20) Basic Metabolic Panel (Bmp) (03/07/18 13:20) Alcohol (Ethanol) (03/07/18 13:20) Electrocardiogram (03/07/18 ) Ct Brain W/O Iv Contrast(Rout) (03/07/18 ) Blood Glucose (03/07/18 13:20) Ecg Monitoring (03/07/18 13:20) Iv Access Insert/Monitor (03/07/18 13:20) Oximetry (03/07/18 13:20) Sodium Chlor 0.9% 1000 Ml Inj (Ns 1000 M (03/07/18 13:20) Sodium Chloride 0.9% Flush (Ns Flush) (03/07/18 13:30) Lactic Acid (03/07/18 13:20) Tibia/Fibula (Ap/Lat) (03/07/18 ) Potassium Chloride (Kcl) (03/07/18 14:30) Labs Laboratory Tests Test 03/07/18 13:30 White Blood Count 4.8 TH/MM3 Red Blood Count 4.18 MIL/MM3 Hemoglobin 13.0 GM/DL Hematocrit 37.2 % Mean Corpuscular Volume 89.0 FL Mean Corpuscular Hemoglobin 31.1 PG Mean Corpuscular Hemoglobin Concent 35.0 % Red Cell Distribution Width 13.8 % Platelet Count 211 TH/MM3 Mean Platelet Volume 7.7 FL Neutrophils (%) (Auto) 63.0 % Lymphocytes (%) (Auto) 25.7 % Monocytes (%) (Auto) 6.5 % Eosinophils (%) (Auto) 3.8 % Basophils (%) (Auto) 1.0 % Neutrophils # (Auto) 3.1 TH/MM3 Lymphocytes # (Auto) 1.2 TH/MM3 Monocytes # (Auto) 0.3 TH/MM3 Eosinophils # (Auto) 0.2 TH/MM3 Basophils # (Auto) 0.1 TH/MM3 CBC Comment DIFF FINAL Differential Comment Blood Urea Nitrogen 6 MG/DL Creatinine 0.87 MG/DL Random Glucose 120 MG/DL Calcium Level 8.3 MG/DL Sodium Level 141 MEQ/L Potassium Level 3.3 MEQ/L Chloride Level 109 MEQ/L Carbon Dioxide Level 23.6 MEQ/L Anion Gap 8 MEQ/L Estimat Glomerular Filtration Rate 72 ML/MIN Lactic Acid Level 0.8 mmol/L Ethyl Alcohol Level LESS THAN 3 MG/DL MDM Medical Record Reviewed: Yes Supervised Visit with COY: Yes Narrative Course I, Dr. Aviles, have reviewed the advance practice practitioner's documentation and am in agreement, met with the patient face to face, made the diagnosis, and the medical decision making was done by me. *My assessment and Findings: Seizures - patient safe to be discharged to home with outpatient neurology/pcp follow up Jenna Aviles DO March 07, 2018 15:45
[2018-03-07 16:52] VITALS: BP 134/79; TEMP 98.4
--- NOTE | 2018-03-08 13:47 | EKG ---
Date Performed: 03/07/2018 Time Performed: 13:45:29 PTAGE: 42 years EKG: Sinus rhythm NORMAL ECG PREVIOUS TRACING : 05/07/2017 13.04 Since the previous tracing, no significant change noted DOCTOR: Sergio Boyd Interpretating Date/Time 03/08/2018 13:45:29
== END 2018-03-07 17:26 | disposition home or self-care (01) ==
LOC: NEPE 13:02
DX: S80.12XA Contusion of left lower leg, initial encounter (principal); E87.6 Hypokalemia; R56.9 Unspecified convulsions; J45.909 Unspecified asthma, uncomplicated; I10 Essential (primary) hypertension; X58.XXXA Exposure to other specified factors, initial encounter; Z88.6 Allergy status to analgesic agent
CPT/HCPCS: 70450; 73590; 80048; 80307; 83605; 85025; 93005; 96360; 99285; J7030

== ENCOUNTER 2018-04-04 13:35 | Emergency (ER) | payer MEDICAID ==
[~2018-04-04] VITALS: Ht 154.9 cm; Wt 60.0 kg
[2018-04-04 13:41] VITALS: BP 130/79; PULSE 88; RESP 16; TEMP 98.7; O2SAT 98
[2018-04-04 14:41] LABS: AUTOMATED NEUTROPHIL # 3.7 TH/MM3 (1.8-7.7); BASOPHIL # 0.1 TH/MM3 (0-0.2); EOSINOPHIL # 0.1 TH/MM3 (0-0.4); EOSINOPHIL % 1.3 % (0.0-4.0); HEMATOCRIT 39.3 % (35.0-46.0); HEMOGLOBIN 13.9 GM/DL (11.6-15.3); LYMPH % 21.2 % (9.0-44.0); LYMPHOCYTE # 1.1 TH/MM3 (1.0-4.8); MEAN CELL VOLUME 88.6 FL (80.0-100.0); MEAN CORPUSCULAR HEMOGLOBIN 31.4 PG (27.0-34.0); MEAN CORPUSCULAR HGB CONC 35.4 % (32.0-36.0); MEAN PLATELET VOLUME 7.9 FL (7.0-11.0); MONOCYTE # 0.4 TH/MM3 (0-0.9); NEUT % 69.5 % (16.0-70.0); PLATELET COUNT 230 TH/MM3 (150-450); RED BLOOD COUNT 4.43 MIL/MM3 (4.00-5.30); RED CELL DISTRIBUTION WIDTH 13.6 % (11.6-17.2); WHITE BLOOD COUNT 5.4 TH/MM3 (4.0-11.0)
[2018-04-04 14:56] LABS: BICARBONATE 22.9 MEQ/L (21.0-32.0); CALCIUM 8.3 MG/DL (8.5-10.1); CREATININE 0.94 MG/DL (0.50-1.00)
--- NOTE | 2018-04-04 16:25 | PD ---
HPI Chief Complaint: Anxiety Time Seen by Provider: 14:05 Travel History International Travel<30 days: No Contact w/Intl Traveler<30days: No Traveled to known affect area: No History of Present Illness HPI 42-year-old female presents to the emergency department via EMS with an apparent syncopal episode today. According to triage note there were bystanders that said the patient had a possible seizure, although the patient denies history of seizures and states she was anxious. EMS states there were no signs or symptoms of seizure activity, postictal state. The patient says that when she came to she was on the ground and the person that was at her side said they lowered her to the ground and that she did not fall. She denies chest pain, shortness breath, abdominal pain. Denies headache, lightheadedness , dizziness. denies recent illness. Denies change in mentation, confusion, disorientation, focal deficits or weakness. Denies history of seizures. Denies alcohol use. Denies illicit drug use. Reports tobacco use. Has not taken any medications or try any treatments to alleviate her symptoms. Does report taking meclizine for history of vertigo. No known aggravating or relieving factors. Symptoms are moderate in severity. No primary care provider. Allergies to aspirin. History of COPD and vertigo. Has no other medical complaints. No other modifying factors or associated signs and symptoms. PFSH Past Medical History Asthma: Yes Cardiovascular Problems: Yes Diabetes: No ("BORDERLINE") Diminished Hearing: No Hypertension: Yes Respiratory: Yes Immunizations Current: Yes Seizures: Yes ?: Not LMP: 06/28/18 : 4 Para: 4 Miscarriage: 0 : 0 Past Surgical History Section: Yes Cholecystectomy: Yes Hysterectomy: No Social History Alcohol Use: No Tobacco Use: Yes (1 PPD) Substance Use: No Allergies-Medications (Allergen,Severity, Reaction): Coded Allergies: aspirin (Verified Allergy, Severe, SWELLS UP, 04/04/18) doesnt know promethazine (Verified Adverse Reaction, Intermediate, Nausea/Vomiting, 04/04/18) Reported Meds & Prescriptions Reported Meds & Active Scripts Active Meclizine (Meclizine HCl) 25 Mg Tab 25 Mg PO TID PRN Review of Systems Except as stated in HPI: all other systems reviewed are Neg Physical Exam Narrative GENERAL: Well-nourished, well-developed femur patient, in no acute distress; disheveled and foul smelling SKIN: Warm and dry. HEAD: Atraumatic. Normocephalic. No facial droop noted. Tongue midline. Shoulder shrug equal. Finger to nose test normal. EYES: Pupils equal and round at 3 mm with brisk reaction. No scleral icterus. No injection or drainage. PERRLA. EOMI. ENT: Mucosa pink and moist. Airway patent. NECK: Trachea midline. No lymphadenopathy. CARDIOVASCULAR: Regular rate and rhythm. No murmur appreciated. RESPIRATORY: No accessory muscle use. Breath sounds clear and equal bilaterally. No retractions or tachypnea. GASTROINTESTINAL: Abdomen soft, non-tender, nondistended. Positive bowel sounds. No hepato-splenomegaly, or palpable masses. No guarding. MUSCULOSKELETAL: No obvious deformities. No clubbing. No cyanosis. No edema. NEUROLOGICAL: Awake and alert. Oriented 4. No obvious cranial nerve deficits. Motor grossly within normal limits. Normal speech. No ataxia. No mid -line drift. No upper or lower extremity drift. Bale Stacker strength equal bilaterally. Sensory intact and equal bilaterally. Moves all extremities. Active plantar and dorsiflexion and strength equal bilaterally. 5/5 strength to all extremities. PSYCHIATRIC: Appropriate mood and affect; insight and judgment normal. Data Data Last Documented VS Vital Signs Date Time Temp Pulse Resp B/P (MAP) Pulse Ox O2 Delivery O2 Flow Rate FiO2 04/04/18 13:41 98.7 88 16 130/79 (96) 98 Orders Orders Electrocardiogram (04/04/18 14:19) Basic Metabolic Panel (Bmp) (04/04/18 14:19) Complete Blood Count With Diff (04/04/18 14:19) Labs Laboratory Tests Test 04/04/18 14:20 White Blood Count 5.4 TH/MM3 Red Blood Count 4.43 MIL/MM3 Hemoglobin 13.9 GM/DL Hematocrit 39.3 % Mean Corpuscular Volume 88.6 FL Mean Corpuscular Hemoglobin 31.4 PG Mean Corpuscular Hemoglobin Concent 35.4 % Red Cell Distribution Width 13.6 % Platelet Count 230 TH/MM3 Mean Platelet Volume 7.9 FL Neutrophils (%) (Auto) 69.5 % Lymphocytes (%) (Auto) 21.2 % Monocytes (%) (Auto) 7.0 % Eosinophils (%) (Auto) 1.3 % Basophils (%) (Auto) 1.0 % Neutrophils # (Auto) 3.7 TH/MM3 Lymphocytes # (Auto) 1.1 TH/MM3 Monocytes # (Auto) 0.4 TH/MM3 Eosinophils # (Auto) 0.1 TH/MM3 Basophils # (Auto) 0.1 TH/MM3 CBC Comment DIFF FINAL Differential Comment Blood Urea Nitrogen 6 MG/DL Creatinine 0.94 MG/DL Random Glucose 101 MG/DL Calcium Level 8.3 MG/DL Sodium Level 143 MEQ/L Potassium Level 3.6 MEQ/L Chloride Level 110 MEQ/L Carbon Dioxide Level 22.9 MEQ/L Anion Gap 10 MEQ/L Estimat Glomerular Filtration Rate 66 ML/MIN MDM Medical Decision Making Medical Screen Exam Complete: Yes Emergency Medical Condition: Yes Medical Record Reviewed: Yes Differential Diagnosis Syncopal episode, dehydration, electrolyte imbalance, arrhythmia Narrative Course 42-year-old female arrives via EMS. On my HPI it seems as if the patient had a syncopal episode. Apparently there were bystanders that witnessed possible seizure activity, but EMS states there was no s/s of seizure activity/postictal state. Patient placed on cardiopulmonary monitoring. Neuro exam is unremarkable. Discussed the patient with Dr. Bernstein and plan of care discussed. CBC, BMP, EKG ordered per EKG with normal sinus rhythm; without ST elevation or depression. 1629: CBC and BMP unremarkable. Patient has been monitored in the cardiopulmonary monitor for approximately 2 hours at this time without any further complication. Instructed patient to follow up with primary care provider. Patient verbalizes understanding and agreement with treatment plan. Patient is medically cleared and stable for discharge. Discussed reasons to return to the emergency department. Patient agrees with treatment plan. The patients vital signs are stable and the patient is stable for outpatient follow- up and treatment. Patient discharged home, stable and in no acute distress. Diagnosis Primary Impression: Syncope Qualified Codes: R55 - Syncope and collapse Referrals: [facility] Primary Care Physician Patient Instructions: General Instructions, Syncope (ED) Additional Instructions: Follow-up with primary care provider Return to the emergency department immediately with worsening of symptoms Med/Other Pt SpecificInfo: No Change to Meds, No Meds Exist/No RX given Disposition: 01 DISCHARGE HOME Condition: Stable Fara Macario Apr 04, 2018 16:25
[2018-04-04 16:35] VITALS: BP 128/72
--- NOTE | 2018-04-06 08:40 | EKG ---
Date Performed: 04/04/2018 Time Performed: 14:33:22 PTAGE: 42 years EKG: Sinus rhythm NORMAL ECG PREVIOUS TRACING : 03/07/2018 13.45 Since the previous tracing, no significant change noted DOCTOR: Tucker Costello Interpretating Date/Time 04/06/2018 08:39:30
== END 2018-04-04 16:41 | disposition home or self-care (01) ==
LOC: NEPD 13:35
DX: R55 Syncope and collapse (principal); J44.9 Chronic obstructive pulmonary disease, unspecified; I10 Essential (primary) hypertension; F17.200 Nicotine dependence, unspecified, uncomplicated; Z86.69 Personal history of other diseases of the nervous system and sense organs
CPT/HCPCS: 80048; 85025; 93005